=== PATIENT | female | born 1950 | race Caucasian/White ===

== ENCOUNTER → 2017-10-06 | Outpatient (CLI) | payer MEDICARE, OTHER ==
[~2017-10-06] MED LIST: ACYC-113 PO; ASPI-515 PO; ASPI325T17 PO; AZEL205.2 NAS; BIMA2.5D EACHEYE; ESTR42.53 EXT; LEVO50TA5 PO; LISI-167 PO; LORA0.5T PO; METF10002 PO; METO25TA35 PO; Maalox/Hyoscyamine/Lidocaine PO; OMEP-110 PO; POLY17PO5 PO; PREG75CA PO; ROSU20TA PO; TIZA4CAP PO
== END | disposition home or self-care (01) ==
LOC: RAD 14:15
PROVIDERS: ATTEND Family Medicine
DX: M43.16 Spondylolisthesis, lumbar region (principal); M51.36 Other intervertebral disc degeneration, lumbar region; M48.061 Spinal stenosis, lumbar region without neurogenic claudication; M25.78 Osteophyte, vertebrae
CPT/HCPCS: 72110

== ENCOUNTER → 2018-05-01 | Outpatient (CLI) | payer MEDICARE, OTHER | END | disposition home or self-care (01) | LOC: CFH 10:04 | PROVIDERS: ATTEND Family Medicine | DX: Z12.31 Encounter for screening mammogram for malignant neoplasm of breast (principal) | CPT/HCPCS: 77063; 77067 ==

== ENCOUNTER 2019-01-27 11:36 | Outpatient (CLI) | payer MEDICARE, OTHER ==
[~2019-01-27 11:36] MED LIST changes: -ROSU20TA PO; +ROSU20TA2 PO
== END 2019-01-27 23:59 | disposition home or self-care (01) ==
LOC: CFH 11:36
PROVIDERS: ATTEND Family Medicine
DX: S20.01XD Contusion of right breast, subsequent encounter (principal); S20.02XD Contusion of left breast, subsequent encounter; R92.8 Other abnormal and inconclusive findings on diagnostic imaging of breast; X58.XXXD Exposure to other specified factors, subsequent encounter; Z87.891 Personal history of nicotine dependence
CPT/HCPCS: 76642; 77066; G0279

== ENCOUNTER → 2019-03-02 | Outpatient (CLI) | payer MEDICARE, OTHER | END | disposition home or self-care (01) | LOC: CFH 12:10 | PROVIDERS: ATTEND Internal Medicine Cardiovascular Disease | DX: I08.0 Rheumatic disorders of both mitral and aortic valves (principal); I10 Essential (primary) hypertension; E78.5 Hyperlipidemia, unspecified | CPT/HCPCS: 93306 ==

== ENCOUNTER 2020-03-03 13:13 | Emergency (ER) | payer MEDICARE, OTHER ==
[~2020-03-03] VITALS: Ht 152.4 cm; Wt 45.5 kg
--- NOTE | 2020-03-03 13:40 | NUR ---
EKG AT THE BEDSIDE
--- NOTE | 2020-03-03 13:52 | NUR ---
PT STATES THAT SHE HAS INTERMITTENTLY LOST HER VOICE OVER THE LAST WEEK OR SO. SHE IS CONNECTED TO A TIP MENDER, O2 SAT, AND BP MONITORING. WE ARE AWAITING An md to assess,.
--- NOTE | 2020-03-03 13:59 | NUR ---
KRISHNA-Manoj IS AT THE BEDSIDE FOR ASSESSMENT
--- NOTE | 2020-03-03 14:15 | NUR ---
CXR AT THE BEDSIDE
[2020-03-03] MEDS ORDERED: SODIUM CHLORIDE FLUSH 10ML SYR IVF ONE (14:30)
[2020-03-03 14:38] LABS: BASOPHILS # (AUTO) 0.02 x10^3/uL (0-0.1); BASOPHILS % (AUTO) 0 % (0-1); EOSINOPHILS # (AUTO) 0.12 x10^3/uL (0-0.4); EOSINOPHILS % (AUTO) 2 % (1-7); LYMPHOCYTES # (AUTO) 2.25 x10^3/uL (1-3.4); LYMPHOCYTES % (AUTO) 38 % (22-44); MD NO; MEAN CORPUSCULAR HEMOGLOBIN 33.9 pg (27.0-34.8); MEAN CORPUSCULAR VOLUME 99.9 fL (80-100); MEAN PLATELET VOLUME 8.2 fL (7.4-10.4); MONOCYTES # (AUTO) 0.41 x10^3/uL (0.2-0.8); MONOCYTES % (AUTO) 7 % (2-9); NEUTROPHILS # (AUTO) 3.08 x10^3/uL (1.8-6.8); NEUTROPHILS % (AUTO) 52 % (42-75); PLATELET COUNT 262 x10^3/uL (130-400); RED CELL DISTRIBUTION WIDTH 12.7 % (9.6-15.2)
[2020-03-03 14:40] LABS: ALANINE AMINOTRANSFERASE 25 U/L (12-78); ALBUMIN 3.6 g/dL (3.4-5.0); ANION GAP 8 mmol/L (5-15); CALCIUM 9.3 mg/dL (8.5-10.1); CHLORIDE 101 mmol/L (98-107); CREATININE 0.94 mg/dL (0.55-1.02)
[2020-03-03 14:45] LABS: ALKALINE PHOSPHATASE 70 U/L (45-117); BILIRUBIN,TOTAL 0.3 mg/dL (0.2-1.0); TOTAL PROTEIN 7.3 g/dL (6.4-8.2); TROPONIN I < 0.015 ng/mL (0.000-0.045)
--- NOTE | 2020-03-03 15:07 | NUR ---
LEENA (RN) IS ASSUMING CARE OF THIS PT AT THIS TIME. SBAR REPORT WAS EXCHANGED AT THE BEDSIDE
[2020-03-03 15:10] VITALS: BP 179/92
--- NOTE | 2020-03-03 15:12 | NUR ---
RECEIVED BEDSIDE REPORT FROM LANDRY BHAKTA.
--- NOTE | 2020-03-03 15:28 | NUR ---
Patient/Caregiver given discharge instructions and they have confirmed that they understand the instructions. Patient ambulatory with steady gait. PT LEFT WITH ALL PERSONAL BELONGINGS.
== END 2020-03-03 15:29 | disposition home or self-care (01) ==
LOC: ED 14:13
DX: R42 Dizziness and giddiness (principal); R11.0 Nausea; R06.02 Shortness of breath; R00.1 Bradycardia, unspecified; I10 Essential (primary) hypertension; E11.9 Type 2 diabetes mellitus without complications; K21.9 Gastro-esophageal reflux disease without esophagitis
CPT/HCPCS: 36415; 71045; 80053; 83880; 84484; 85025; 93005; 99285

== ENCOUNTER 2020-04-19 09:09 | Outpatient (CLI) | payer MEDICARE, OTHER | END 2020-04-19 23:59 | disposition home or self-care (01) | LOC: CFH 09:09 | PROVIDERS: ATTEND Family Medicine | DX: Z02.9 Encounter for administrative examinations, unspecified (principal) ==

== ENCOUNTER 2020-05-01 07:44 | Emergency (ER) | payer MEDICARE, OTHER ==
[~2020-05-01] VITALS: Ht 152.4 cm; Wt 45.9 kg
[2020-05-01] MEDS ORDERED: LIDOCAINE 1%-EPI 1:100K, 20ML ONE (08:05)
[2020-05-01] MEDS ORDERED: PHENYLEPHRINE NASAL 1%, 15ML SPRAY ONE ×2 (08:06→10:14)
[2020-05-01 08:22] LABS: BASOPHILS # (AUTO) 0.02 x10^3/uL (0-0.1); BASOPHILS % (AUTO) 1 % (0-1); EOSINOPHILS # (AUTO) 0.09 x10^3/uL (0-0.4); EOSINOPHILS % (AUTO) 3 % (1-7); LYMPHOCYTES # (AUTO) 1.35 x10^3/uL (1-3.4); LYMPHOCYTES % (AUTO) 43 % (22-44); MD NO; MEAN CORPUSCULAR HEMOGLOBIN 33.9 pg (27.0-34.8); MEAN CORPUSCULAR HGB CONC 33.3 g/dL (32.4-35.8); MEAN PLATELET VOLUME 8.1 fL (7.4-10.4); MONOCYTES # (AUTO) 0.26 x10^3/uL (0.2-0.8); MONOCYTES % (AUTO) 8 % (2-9); NEUTROPHILS # (AUTO) 1.42 x10^3/uL (1.8-6.8); NEUTROPHILS % (AUTO) 45 % (42-75); PLATELET COUNT 250 x10^3/uL (130-400); RED BLOOD COUNT 3.82 x10^6/uL (3.82-5.3); RED CELL DISTRIBUTION WIDTH 12.3 % (9.6-15.2)
[2020-05-01] MEDS ORDERED: LIDOCAINE 1%-EPI 1:100K, 20ML SQ ONE (08:30)
[2020-05-01] MEDS ORDERED: PHENYLEPHRINE NASAL 1%, 30ML DROPS NAS ONE (08:30)
[2020-05-01 08:32] LABS: ALBUMIN 3.5 g/dL (3.4-5.0); ANION GAP 3 mmol/L (5-15); CALCIUM 8.6 mg/dL (8.5-10.1); CHLORIDE 107 mmol/L (98-107); CREATININE 1.07 mg/dL (0.55-1.02); INTERNATIONAL NORMALIZED RATIO 0.88 (0.93-1.1); PROTHROMBIN TIME 9.3 Seconds (9.6-11.5)
[2020-05-01] MEDS ORDERED: SILVER NITRATE STICK TP ONE ×2 (08:34→09:00)
[2020-05-01 09:25] VITALS: BP 157/83
[2020-05-01] MEDS ORDERED: TRANEXAMIC ACID 100 MG/ML, 10ML ONE ×2 (10:14→10:20)
[2020-05-01] MEDS ORDERED: TRANEXAMIC ACID 100 MG/ML, 10ML TP ONE (10:30)
== END 2020-05-01 11:18 | disposition home or self-care (01) ==
LOC: ED 09:45
DX: R04.0 Epistaxis (principal); R51 Headache; K21.9 Gastro-esophageal reflux disease without esophagitis; E11.9 Type 2 diabetes mellitus without complications; E78.5 Hyperlipidemia, unspecified; I10 Essential (primary) hypertension; E03.9 Hypothyroidism, unspecified; Z88.2 Allergy status to sulfonamides; Z88.1 Allergy status to other antibiotic agents; Z88.8 Allergy status to other drugs, medicaments and biological substances
CPT/HCPCS: 30901; 36415; 80048; 82040; 85025; 85610; 85730; 99284; J3490

== ENCOUNTER → 2020-05-23 | Outpatient (CLI) | payer MEDICARE, OTHER | END | disposition home or self-care (01) | LOC: CFH 11:59 | PROVIDERS: ATTEND Family Medicine | DX: R92.1 Mammographic calcification found on diagnostic imaging of breast (principal); N63.10 Unspecified lump in the right breast, unspecified quadrant; N63.20 Unspecified lump in the left breast, unspecified quadrant | CPT/HCPCS: 76642; 77066 ==

== ENCOUNTER → 2020-07-19 | Outpatient (CLI) | payer MEDICARE, OTHER ==
[~2020-07-19] MED LIST changes: +LIDOCAINE 1%, 20ML ONE; +LIDOCAINE 1%-EPI 1:100K, 20ML ONE; +SODIUM BICARBONATE 4.2%, 5ML ONE
== END | disposition home or self-care (01) ==
LOC: CFH 10:09
PROVIDERS: ATTEND Family Medicine
DX: R92.0 Mammographic microcalcification found on diagnostic imaging of breast (principal); R55 Syncope and collapse
CPT/HCPCS: 19081; J3490

== ENCOUNTER 2020-08-23 07:50 | Outpatient (CLI) | payer MEDICARE, OTHER ==
[~2020-08-23 07:50] MED LIST changes: -LIDOCAINE 1%, 20ML ONE; -LIDOCAINE 1%-EPI 1:100K, 20ML ONE; -SODIUM BICARBONATE 4.2%, 5ML ONE
[2020-08-23] MEDS ORDERED: SODIUM BICARBONATE 4.0%, 5ML ONE (12:38)
[2020-08-23] MEDS ORDERED: LIDOCAINE 1%, 20ML ONE (12:38)
== END 2020-08-23 23:59 | disposition home or self-care (01) ==
LOC: CFH 07:50
PROVIDERS: ATTEND Surgery
DX: R92.0 Mammographic microcalcification found on diagnostic imaging of breast (principal); D05.11 Intraductal carcinoma in situ of right breast
CPT/HCPCS: 19081; 88305; 77065

== ENCOUNTER → 2021-02-19 | Outpatient (CLI) | payer MEDICARE, OTHER ==
[~2021-02-19] MED LIST changes: -ACYC-113 PO; +ACYC200C13 PO; -ASPI-515 PO; +ASPI-963 PO
== END | disposition home or self-care (01) ==
LOC: CFH 12:44
PROVIDERS: ATTEND Surgery
DX: Z12.31 Encounter for screening mammogram for malignant neoplasm of breast (principal)
CPT/HCPCS: 77063; 77067

== ENCOUNTER 2021-03-02 14:07 | Outpatient (CLI) | payer MEDICARE, OTHER ==
[2021-07-26] MEDS ORDERED: LEVO50TA PO (16:47)
[2021-07-26] MEDS ORDERED: DONE5TAB52 PO (16:47)
[2021-07-26] MEDS ORDERED: LOSA25TA25 PO (16:47)
[2021-07-26] MEDS ORDERED: RISP1TAB90 PO (16:47)
[2021-07-26] MEDS ORDERED: ANAS1TAB49 PO (16:47)
[2021-07-26] MEDS ORDERED: MELA3TAB31 PO (16:47)
[2021-07-26] MEDS ORDERED: FAMO20TA7 PO (16:47)
[2021-07-26] MEDS ORDERED: CITA20TA9 PO (16:47)
[2021-07-26] MEDS ORDERED: EZET10TA48 PO (16:47)
== END 2021-03-02 23:59 | disposition home or self-care (01) ==
LOC: CFH 14:07
PROVIDERS: ATTEND Surgery
DX: R92.1 Mammographic calcification found on diagnostic imaging of breast (principal)
CPT/HCPCS: 77065

== ENCOUNTER 2021-03-20 11:30 | Emergency (ER) | payer MEDICARE, OTHER ==
[~2021-03-20] VITALS: Ht 142.2 cm; Wt 46.4 kg
--- NOTE | 2021-03-20 11:57 | NUR ---
PT HERE FOR C/O DIZZINESS AFTER TAKING DICYCLOMINE FOR IBS. PT PLACED ON ALL MONITORS, FALL PRECAUTIONS IMPLEMENTED, CALL LIGHT PLACED WITHIN REACH.
--- NOTE | 2021-03-20 12:32 | NUR ---
LAB AT BEDSIDE. PT IN NAD, VSS.
[2021-03-20] MEDS ORDERED: CLON-364 PO (12:39)
[2021-03-20] MEDS ORDERED: FAMO40TA4 PO (12:39)
[2021-03-20] MEDS ORDERED: LOSA25TA12 PO (12:39)
[2021-03-20] MEDS ORDERED: METO-264 PO (12:39)
[2021-03-20] MEDS ORDERED: ANAS1TAB49 PO (12:39)
[2021-03-20] MEDS ORDERED: CITA10TA4 PO (12:39)
[2021-03-20] MEDS ORDERED: DONE5TAB7 PO (12:39)
[2021-03-20] MEDS ORDERED: EZET10TA48 PO (12:39)
[2021-03-20] MEDS ORDERED: DICY10CA3 PO (12:39)
[2021-03-20] MEDS ORDERED: PREG100C49 PO (12:39)
[2021-03-20] MEDS ORDERED: METF-754 PO (12:39)
[2021-03-20 12:46] LABS: BASOPHILS % (AUTO) 1 % (0-1); EOSINOPHILS % (AUTO) 1 % (1-7); LYMPHOCYTES % (AUTO) 34 % (22-44); MEAN CORPUSCULAR HEMOGLOBIN 34.4 pg (27.0-34.8); MEAN CORPUSCULAR HGB CONC 34.5 g/dL (32.4-35.8); MEAN PLATELET VOLUME 7.5 fL (7.4-10.4); MONOCYTES % (AUTO) 8 % (2-9); NEUTROPHILS % (AUTO) 56 % (42-75); PLATELET COUNT 251 x10^3/uL (130-400); RED BLOOD COUNT 3.49 x10^6/uL (3.82-5.3)
--- NOTE | 2021-03-20 12:49 | NUR ---
PT AMBULATED TO RESTROOM ON STEADY GAIT, DENIES DIZZINESS.
[2021-03-20 12:51] LABS: MD NO
[2021-03-20 12:59] LABS: ALBUMIN 3.5 g/dL (3.4-5.0); ANION GAP 3 mmol/L (5-15); CALCIUM 8.9 mg/dL (8.5-10.1); CHLORIDE 103 mmol/L (98-107)
[2021-03-20 13:04] LABS: CREATININE 0.86 mg/dL (0.55-1.02); TROPONIN I < 0.015 ng/mL (0.000-0.045)
[2021-03-20 14:08] VITALS: BP 156/78
--- NOTE | 2021-03-20 14:09 | NUR ---
PT RESTING IN NAD, VITALS REMAIN STABLE. DENIES DIZZINESS.
== END 2021-03-20 14:27 ==
LOC: ED 14:03
DX: R42 Dizziness and giddiness (principal); R00.1 Bradycardia, unspecified; I10 Essential (primary) hypertension; E11.9 Type 2 diabetes mellitus without complications; E03.9 Hypothyroidism, unspecified; K21.9 Gastro-esophageal reflux disease without esophagitis; E78.5 Hyperlipidemia, unspecified
CPT/HCPCS: 36415; 80048; 82040; 83605; 84484; 85025; 93005; 99284

== ENCOUNTER 2021-04-18 11:35 | Observation (INO) | payer MEDICARE, OTHER ==
[~2021-04-18] VITALS: Ht 152.4 cm; Wt 45.6 kg
[~2021-04-18 11:35] MED LIST changes: +ANAS1TAB49 PO; +CITA10TA4 PO; +CLON-364 PO; +DICY10CA3 PO; +DONE5TAB7 PO; +EZET10TA48 PO; +FAMO40TA4 PO; +LOSA25TA12 PO; +METF-754 PO; +METO-264 PO; +PREG100C49 PO
--- NOTE | 2021-04-18 11:54 | NUR ---
PT AND FAMILY RPT FREQUENT CONFUSION OVER PAST WEEK. EXPLAINED THAT PT HAD UNPACKED HER SUIT CASE AND PUT ALL OF HER THINGS AWAY BUT THEN CAME DOWN THE STAIRS TELLING HER SON THAT SHE COULDN'T FIND HER MEDICATIONS. WHEN SON WENT UPSTAIRS TO HELP HER LOOK HE FOUND HER MEDICATIONS ON THE SHELF WHERE SHE HAD JUST UNPACKED THEM. DR RUIZ AT BEDSIDE. SON RECOUNTS OTHER FORGETFUL EPISODES OVER PREVIOUS SEVERAL MONTHS. HAS ATTEMPTED TO HAVE PT SEEN BY NEUROLOIST BUT APPT ARE SEVERAL MONTHS AWAY. ALL MONITORS PLACED AND NO NEURO DEFICITS NOTED AT THIS TIME. PT REPORTS THAT SHE REMEMBERS ALL OF THE EPISODES OF CONFUSION. VSS, CALL LIGHT W/I REACH
--- NOTE | 2021-04-18 12:25 | NUR ---
PT OOB AND AMBULATED TO BATHROOM, WAS UNABLE TO VOID. RTD TO ROOM W/O INCIDENT PT TO CT WITH TECH TRANSPORT
[2021-04-18] MEDS ORDERED: SODIUM CHLORIDE FLUSH 10ML SYR IVF ONE (12:30)
[2021-04-18 12:56] LABS: BASOPHILS % (AUTO) 1 % (0-1); EOSINOPHILS % (AUTO) 1 % (1-7); LYMPHOCYTES % (AUTO) 32 % (22-44); MEAN CORPUSCULAR HGB CONC 34.9 g/dL (32.4-35.8); MEAN PLATELET VOLUME 8.4 fL (7.4-10.4); MONOCYTES % (AUTO) 8 % (2-9); NEUTROPHILS % (AUTO) 59 % (42-75); PLATELET COUNT 213 x10^3/uL (130-400); RED BLOOD COUNT 3.96 x10^6/uL (3.82-5.3); RED CELL DISTRIBUTION WIDTH 12.5 % (9.6-15.2)
--- NOTE | 2021-04-18 12:56 | NUR ---
PIV EST AND LABS DRAWN. [facility] CATH PROCEDURE EXPLAINED TO PT.
[2021-04-18 13:08] LABS: ALANINE AMINOTRANSFERASE 31 U/L (12-78); ALBUMIN 3.8 g/dL (3.4-5.0); ANION GAP 9 mmol/L (5-15); CALCIUM 9.5 mg/dL (8.5-10.1); CHLORIDE 99 mmol/L (98-107); CREATININE 0.94 mg/dL (0.55-1.02)
--- NOTE | 2021-04-18 13:10 | NUR ---
dr abel spoke with dr jimenez with [facility]
[2021-04-18 13:28] LABS: ALKALINE PHOSPHATASE 72 U/L (45-117); BILIRUBIN,TOTAL 0.5 mg/dL (0.2-1.0); TOTAL PROTEIN 7.4 g/dL (6.4-8.2)
[2021-04-18] MEDS ORDERED: SODIUM CHLORIDE FLUSH 10ML SYR IVF PRN (13:30)
[2021-04-18 13:33] LABS: MICROSCOPIC INDICATED
[2021-04-18 13:35] LABS: SALICYLATE LEVEL < 1.7 mg/dL (2.8-20.0)
[2021-04-18 15:27] VITALS: BP 143/74
[2021-04-18] MEDS ORDERED: MELATONIN 5 MG TABLET PO PRN (16:00)
[2021-04-18] MEDS ORDERED: ACETAMINOPHEN 325 MG TABLET PO PRN (16:00)
[2021-04-18] MEDS ORDERED: DICYCLOMINE 10 MG CAPSULE PO PRN (16:30)
[2021-04-18] MEDS ORDERED: AZELASTINE HCL NAS SCH (16:30)
[2021-04-18 19:08] VITALS: BP 131/80
[2021-04-18] MEDS: FAMOTIDINE 40 MG TABLET PO SCH (20:27)
[2021-04-18] MEDS: PREGABALIN 100 MG CAPSULE PO SCH (20:28)
[2021-04-18] MEDS ORDERED: PREGABALIN 75 MG CAPSULE PO SCH (21:00)
[2021-04-18] MEDS ORDERED: Bimatoprost (Lumigan) 1 DROP EACHEYE SCH (21:00)
[2021-04-18] MEDS ORDERED: TIZANIDINE 4MG TABLET PO SCH (21:00)
[2021-04-18] MEDS ORDERED: ATORVASTATIN 80 MG TABLET PO SCH (21:00)
[2021-04-18] MEDS ORDERED: LATANOPROST OPHTH 0.005%, 2.5ML EACHEYE SCH (21:00)
[2021-04-19 00:20] VITALS: BP 107/62
[2021-04-19] MEDS ORDERED: LEVOTHYROXINE 50 MCG TABLET PO SCH (06:00)
[2021-04-19 06:26] VITALS: BP 130/78
[2021-04-19] MEDS: PREGABALIN 100 MG CAPSULE PO SCH (08:56)
[2021-04-19] MEDS: FAMOTIDINE 40 MG TABLET PO SCH (08:56)
[2021-04-19] MEDS ORDERED: MULTIVITAMIN 1 TABLET PO SCH (09:00)
[2021-04-19] MEDS ORDERED: METOPROLOL SUCCINATE 50 MG TAB.ER.24H PO SCH (09:00)
[2021-04-19] MEDS ORDERED: LOSARTAN 25MG TABLET PO SCH (09:00)
[2021-04-19] MEDS ORDERED: DONEPEZIL 5 MG TABLET PO SCH (09:00)
[2021-04-19] MEDS ORDERED: CITALOPRAM 10 MG TABLET PO SCH (09:00)
[2021-04-19] MEDS ORDERED: ANASTROZOLE 1 MG TABLET PO SCH (09:00)
[2021-04-19] MEDS ORDERED: ASPIRIN 81 MG TABLET EC PO SCH (09:00)
[2021-04-19] MEDS ORDERED: EZETIMIBE 10 MG TABLET PO SCH (09:00)
[2021-04-19] MEDS ORDERED: metFORMIN XR 500 MG TAB.ER.24H PO SCH (09:00)
[2021-04-19] MEDS ORDERED: GADOTERATE 5 MMOL/10ML SYR ONE (11:18)
[2021-04-19] MEDS ORDERED: VITA1TAB19 PO (13:15)
[2021-04-19 13:52] VITALS: BP 177/85
[2021-04-20] MEDS ORDERED: FAMOTIDINE 20 MG TABLET PO SCH (09:00)
== END 2021-04-19 18:00 | disposition home or self-care (01) ==
LOC: SUATTDRO 13:23 → ED 14:00 → EDIP 14:15 → INTOOBSV 14:15 → 3N 15:24
PROVIDERS: ADMIT Internal Medicine; ATTEND Internal Medicine
DX: F03.90 Unspecified dementia, unspecified severity, without behavioral disturbance, psychotic disturbance, mood disturbance, and anxiety (principal); G93.40 Encephalopathy, unspecified; I10 Essential (primary) hypertension; E11.9 Type 2 diabetes mellitus without complications; C50.919 Malignant neoplasm of unspecified site of unspecified female breast; H40.9 Unspecified glaucoma; E03.9 Hypothyroidism, unspecified; E78.5 Hyperlipidemia, unspecified; K21.9 Gastro-esophageal reflux disease without esophagitis; G89.29 Other chronic pain; G31.9 Degenerative disease of nervous system, unspecified; F41.8 Other specified anxiety disorders; Z87.891 Personal history of nicotine dependence; Z91.040 Latex allergy status; Z79.899 Other long term (current) drug therapy; Z79.84 Long term (current) use of oral hypoglycemic drugs; Z79.2 Long term (current) use of antibiotics; Z66 Do not resuscitate
CPT/HCPCS: 36415; 70450; 70553; 80053; 80299; 80320; 81001; 82140; 82607; 84443; 85025; 86592; 87086; 93005; 95816; 99285; A9575; G0378; 80329; G0480

== ENCOUNTER 2021-05-22 06:58 | Outpatient (CLI) | payer MEDICARE, OTHER ==
[~2021-05-22 06:58] MED LIST changes: +VITA1TAB19 PO
[2021-05-22] MEDS ORDERED: LIDOCAINE 1%, 20ML ONE (10:12)
[2021-05-22] MEDS ORDERED: SODIUM BICARBONATE 4.0%, 5ML ONE (10:12)
== END 2021-05-22 23:59 | disposition home or self-care (01) ==
LOC: CFH 06:58
PROVIDERS: ATTEND Surgery
DX: R92.1 Mammographic calcification found on diagnostic imaging of breast (principal)
CPT/HCPCS: 19081

== ENCOUNTER 2021-06-12 19:16 | Inpatient (IN) | payer MEDICARE, OTHER ==
[~2021-06-12] VITALS: Ht 152.4 cm; Wt 43.5 kg
[2021-06-12] MEDS ORDERED: LIDOCAINE 1%, 10ML INFIL ONE (19:30)
[2021-06-12] MEDS ORDERED: SODIUM CHLORIDE 0.9% 1,000ML IVBOLUS ONE (19:30)
[2021-06-12] MEDS ORDERED: SODIUM CHLORIDE FLUSH 10ML SYR IVF ONE (19:30)
--- NOTE | 2021-06-12 19:32 | NUR ---
PT BIBA. PER EMS PT HAD A GLF TODAY AND CHIPPED HER TOOTH. PT ALSO HAS SMALL LACERATION ON R UPPER LIP, BLEEDING CONTROLLED. PER EMS -LOC OR ANTICOAGS. PT HAS HX OF DEMENTIA. PER PT SHE JUST DIDN'T FEEL RIGHT AND FELL. PT RESTING IN GURNEY, MONITORING IN PLACE, SON AT BEDSIDE, UVALDO AT THIS TIME, WCTM.
--- NOTE | 2021-06-12 19:34 | NUR ---
PER EMS PT RECEIVED 1L NS EN ROUTE.
--- NOTE | 2021-06-12 19:41 | NUR ---
Gamaliel Felix (son) I spoke w/ pts son who approached RN at desk. Stated that he cannot take care of the pt tonight because he has been taking care of her for the last two nights, she has dementia, and he has not slept in two days. Son stated that if she is to be discharged tonight, he will not be able to come and take care of her or bring her home because he takes antidepressant medications and it would be a risk to himself "and her" if he drives to come and pick her up. Primary RN Jessica, made aware at this time. Pts son, Gamaliel has exited the ER.
[2021-06-12 19:48] LABS: BASOPHILS % (AUTO) 0 % (0-1); EOSINOPHILS % (AUTO) 0 % (1-7); LYMPHOCYTES % (AUTO) 12 % (22-44); MEAN CORPUSCULAR HGB CONC 34.8 g/dL (32.4-35.8); MONOCYTES % (AUTO) 7 % (2-9); NEUTROPHILS % (AUTO) 80 % (42-75); PLATELET COUNT 185 x10^3/uL (130-400); RED BLOOD COUNT 3.44 x10^6/uL (3.82-5.3); RED CELL DISTRIBUTION WIDTH 12.1 % (9.6-15.2)
[2021-06-12 20:00] LABS: ANION GAP 9 mmol/L (5-15); CALCIUM 8.1 mg/dL (8.5-10.1); CHLORIDE 99 mmol/L (98-107)
[2021-06-12 20:07] LABS: ALANINE AMINOTRANSFERASE 15 U/L (12-78); ALKALINE PHOSPHATASE 63 U/L (45-117); BILIRUBIN,TOTAL 0.6 mg/dL (0.2-1.0); CREATININE 1.56 mg/dL (0.55-1.02); TROPONIN I < 0.015 ng/mL (0.000-0.045)
--- NOTE | 2021-06-12 20:32 | NUR ---
PT AMBULATED STEADILY TO BATHROOM BUT IS UNABLE TO PROVIDE URINE SAMPLE AT THIS TIME. WCTM.
--- NOTE | 2021-06-12 20:53 | NUR ---
RUTH ANN, SON, CALLED TO CHECK ON PT. PT STATES IT IS OKAY TO TELL HIM INFO AND UPDATE HIM ON POC. POC RELAYED TO SON.
--- NOTE | 2021-06-12 21:03 | NUR ---
REPORT TO LANDRY BARAHONA.
--- NOTE | 2021-06-12 21:15 | NUR ---
RECIEVED REPORT FROM STEVE ALATORRE. PATIENT RESTING ON [place], AMANDA AT THIS TIME, NOTIFIED PATIENT THAT A UA IS NEEDED.
--- NOTE | 2021-06-12 22:19 | NUR ---
WENT INTO ROOM TO CATH PATIENT FOR UA, PATIENT DID NOT WAKE TO VERBAL COMMANDS, ATTEMPTED TO ROUSE PATIENT BY SHAKING HER SHOULD WITH NO RESULTS, HAD TO STERNAL RUB THE PATIENT TO GET HER TO WAKE UP. ONCE AWAKE PATIENT IS AOX4, NAD AND VSS.
[2021-06-12 22:35] LABS: MICROSCOPIC INDICATED
--- NOTE | 2021-06-12 23:33 | NUR ---
PATIENT SLEEPING ON AMANDA MORAN AT THIS TIME. VSS.
--- NOTE | 2021-06-13 01:00 | NUR ---
Preceptor RN: Patient resting in [facility] with no complaints at this time. Respirations even and unlabored.
--- NOTE | 2021-06-13 02:03 | NUR ---
REQUESTED HOSPITAL BED FOR PT.
--- NOTE | 2021-06-13 03:05 | NUR ---
patient sleeping on AMANDA gómez at this time, VSS.
--- NOTE | 2021-06-13 03:40 | NUR ---
PATIENT REQUESTED TO USE BATHROOM, AMBULATORY WITH STEADY GATE TO BATHROOM, RETURNED TO ROOM, CONNECTED BACK TO MONITOR. NAD AT THIS TIME.
--- NOTE | 2021-06-13 04:46 | NUR ---
PATIENT SLEEPING ON AMANDA MORAN AT THIS TIME, VSS
--- NOTE | 2021-06-13 05:47 | NUR ---
PATIENT MOVED TO ROOM 05 FROM VIA W/C. PLACED IN HOSPITAL BED, CONNECTED TO MONITOR. BELONGINGS PLACED IN ROOM WITH PATIENT, CALL LIGHT WITHIN REACH.
[2021-06-13] MEDS ORDERED: hydrALAzine 20 MG/ML, 1ML IVPush PRN (07:00)
[2021-06-13] MEDS ORDERED: morphine SULFATE 10 MG/ML, 1ML IVPush PRN (07:00)
[2021-06-13] MEDS ORDERED: ACETAMINOPHEN 325 MG TABLET PO PRN (07:00)
[2021-06-13] MEDS ORDERED: ONDANSETRON 2MG/ML, 2ML IVPush PRN (07:00)
[2021-06-13 07:31] LABS: BASOPHILS % (AUTO) 1 % (0-1); EOSINOPHILS % (AUTO) 2 % (1-7); LYMPHOCYTES % (AUTO) 44 % (22-44); MEAN CORPUSCULAR HGB CONC 34.7 g/dL (32.4-35.8); MEAN PLATELET VOLUME 8.4 fL (7.4-10.4); MONOCYTES % (AUTO) 11 % (2-9); NEUTROPHILS % (AUTO) 43 % (42-75); PLATELET COUNT 192 x10^3/uL (130-400); RED BLOOD COUNT 3.41 x10^6/uL (3.82-5.3); RED CELL DISTRIBUTION WIDTH 12.1 % (9.6-15.2)
--- NOTE | 2021-06-13 07:44 | NUR ---
cardiac rhythm strip printed and placed on chart.
[2021-06-13] MEDS ORDERED: DICYCLOMINE 10 MG CAPSULE PO PRN (08:30)
[2021-06-13] MEDS ORDERED: HEPARIN 5,000 UNITS/ML, 1ML ONE (08:34)
[2021-06-13] MEDS: HEPARIN 5,000 UNITS/ML, 1ML SQ SCH ×2 (08:38→20:46)
--- NOTE | 2021-06-13 09:34 | NUR ---
MEAL TRAY PROVIDED.
[2021-06-13] MEDS ORDERED: FAMOTIDINE 20 MG TABLET ONE (11:06)
[2021-06-13] MEDS ORDERED: ASPIRIN 81 MG TABLET EC ONE (11:06)
[2021-06-13] MEDS: ANASTROZOLE 1 MG TABLET PO SCH (11:41)
[2021-06-13] MEDS: metFORMIN XR 500 MG TAB.ER.24H PO SCH (11:41)
[2021-06-13] MEDS: ASPIRIN 81 MG TABLET EC PO SCH (11:41)
[2021-06-13] MEDS: DONEPEZIL 5 MG TABLET PO SCH (11:42)
[2021-06-13] MEDS: FAMOTIDINE 40 MG TABLET PO SCH ×2 (11:42→20:46)
[2021-06-13] MEDS: CITALOPRAM 10 MG TABLET PO SCH (11:42)
[2021-06-13] MEDS: LOSARTAN 25MG TABLET PO SCH (11:42)
[2021-06-13] MEDS: LEVOTHYROXINE 50 MCG TABLET PO SCH (11:42)
[2021-06-13] MEDS: EZETIMIBE 10 MG TABLET PO SCH (11:42)
[2021-06-13] MEDS: METOPROLOL SUCCINATE 50 MG TAB.ER.24H PO SCH (11:43)
[2021-06-13] MEDS: PREGABALIN 100 MG CAPSULE PO SCH ×2 (14:30→20:46)
[2021-06-13 19:09] VITALS: BP 140/79
[2021-06-14] VITALS (7 sets, daily range): BP systolic 134–162; BP diastolic 74–91
[2021-06-14 06:22] LABS: ANION GAP 8 mmol/L (5-15); CALCIUM 8.2 mg/dL (8.5-10.1); CHLORIDE 93 mmol/L (98-107)
[2021-06-14 06:25] LABS: ALANINE AMINOTRANSFERASE 19 U/L (12-78); ALKALINE PHOSPHATASE 77 U/L (45-117); BILIRUBIN,TOTAL 0.8 mg/dL (0.2-1.0); CREATININE 0.85 mg/dL (0.55-1.02); TOTAL PROTEIN 6.3 g/dL (6.4-8.2)
[2021-06-14] MEDS: ASPIRIN 81 MG TABLET EC PO SCH (08:17)
[2021-06-14] MEDS: FAMOTIDINE 40 MG TABLET PO SCH ×2 (08:17→21:45)
[2021-06-14] MEDS: HEPARIN 5,000 UNITS/ML, 1ML SQ SCH ×2 (08:17→18:06)
[2021-06-14] MEDS: PREGABALIN 100 MG CAPSULE PO SCH ×2 (08:17→21:45)
[2021-06-14] MEDS: LEVOTHYROXINE 50 MCG TABLET PO SCH (08:17)
[2021-06-14] MEDS: EZETIMIBE 10 MG TABLET PO SCH (08:18)
[2021-06-14] MEDS: LOSARTAN 25MG TABLET PO SCH (08:18)
[2021-06-14] MEDS: metFORMIN XR 500 MG TAB.ER.24H PO SCH (08:18)
[2021-06-14] MEDS: CITALOPRAM 10 MG TABLET PO SCH (08:18)
[2021-06-14] MEDS: DONEPEZIL 5 MG TABLET PO SCH (08:18)
[2021-06-14] MEDS: METOPROLOL SUCCINATE 50 MG TAB.ER.24H PO SCH (08:46)
[2021-06-14] MEDS: ANASTROZOLE 1 MG TABLET PO SCH (09:00)
[2021-06-14] MEDS ORDERED: HALOPERIDOL 5 MG/ML IV ONE (13:30)
[2021-06-14] MEDS: SODIUM CHLORIDE 0.9% 1,000 ML IV SCH (18:06)
[2021-06-15 00:32] VITALS: BP 117/69
[2021-06-15] MEDS: SODIUM CHLORIDE 0.9% 1,000 ML IV SCH ×2 (04:58→12:42)
[2021-06-15 05:13] LABS: CREATININE 0.55 mg/dL (0.55-1.02)
[2021-06-15 05:35] LABS: ANION GAP 8 mmol/L (5-15); CHLORIDE 99 mmol/L (98-107)
[2021-06-15] MEDS: ASPIRIN 81 MG TABLET EC PO SCH (08:53)
[2021-06-15] MEDS: metFORMIN XR 500 MG TAB.ER.24H PO SCH (08:53)
[2021-06-15] MEDS: HEPARIN 5,000 UNITS/ML, 1ML SQ SCH ×2 (08:53→21:35)
[2021-06-15] MEDS: LEVOTHYROXINE 50 MCG TABLET PO SCH (08:54)
[2021-06-15] MEDS: CITALOPRAM 10 MG TABLET PO SCH (08:54)
[2021-06-15] MEDS: METOPROLOL SUCCINATE 50 MG TAB.ER.24H PO SCH (08:54)
[2021-06-15] MEDS: LOSARTAN 25MG TABLET PO SCH (08:54)
[2021-06-15] MEDS: PREGABALIN 100 MG CAPSULE PO SCH ×2 (08:54→21:32)
[2021-06-15] MEDS: EZETIMIBE 10 MG TABLET PO SCH (08:54)
[2021-06-15] MEDS: DONEPEZIL 5 MG TABLET PO SCH (08:54)
[2021-06-15] MEDS: ANASTROZOLE 1 MG TABLET PO SCH (08:55)
[2021-06-15 09:23] VITALS: BP 126/56
[2021-06-15 12:31] VITALS: BP 158/78
[2021-06-15 19:39] VITALS: BP 154/78
[2021-06-15] MEDS: FAMOTIDINE 40 MG TABLET PO SCH (21:32)
[2021-06-16 00:51] VITALS: BP 154/83
[2021-06-16 08:30] VITALS: BP 123/78
[2021-06-16] MEDS: EZETIMIBE 10 MG TABLET PO SCH (09:53)
[2021-06-16] MEDS: DONEPEZIL 5 MG TABLET PO SCH (09:53)
[2021-06-16] MEDS: metFORMIN XR 500 MG TAB.ER.24H PO SCH (09:53)
[2021-06-16] MEDS: ASPIRIN 81 MG TABLET EC PO SCH (09:53)
[2021-06-16] MEDS: ANASTROZOLE 1 MG TABLET PO SCH (09:53)
[2021-06-16] MEDS: LOSARTAN 25MG TABLET PO SCH (09:54)
[2021-06-16] MEDS: CITALOPRAM 10 MG TABLET PO SCH (09:54)
[2021-06-16] MEDS: METOPROLOL SUCCINATE 50 MG TAB.ER.24H PO SCH (09:54)
[2021-06-16] MEDS: HEPARIN 5,000 UNITS/ML, 1ML SQ SCH ×2 (09:54→20:03)
[2021-06-16] MEDS: LEVOTHYROXINE 50 MCG TABLET PO SCH (09:54)
[2021-06-16] MEDS: PREGABALIN 100 MG CAPSULE PO SCH ×2 (09:54→20:03)
[2021-06-16 15:57] VITALS: BP 152/71
[2021-06-16 19:02] VITALS: BP 128/79
[2021-06-16] MEDS: FAMOTIDINE 40 MG TABLET PO SCH (20:03)
[2021-06-17 01:25] VITALS: BP 143/81
[2021-06-17 07:58] VITALS: BP 148/76
[2021-06-17] MEDS: PREGABALIN 100 MG CAPSULE PO SCH ×2 (08:55→21:32)
[2021-06-17] MEDS: CITALOPRAM 10 MG TABLET PO SCH (08:55)
[2021-06-17] MEDS: ANASTROZOLE 1 MG TABLET PO SCH (08:55)
[2021-06-17] MEDS: EZETIMIBE 10 MG TABLET PO SCH (08:55)
[2021-06-17] MEDS: DONEPEZIL 5 MG TABLET PO SCH (08:55)
[2021-06-17] MEDS: LEVOTHYROXINE 50 MCG TABLET PO SCH (08:55)
[2021-06-17] MEDS: ASPIRIN 81 MG TABLET EC PO SCH (08:55)
[2021-06-17] MEDS: LOSARTAN 25MG TABLET PO SCH (08:56)
[2021-06-17] MEDS: metFORMIN XR 500 MG TAB.ER.24H PO SCH (08:56)
[2021-06-17] MEDS: HEPARIN 5,000 UNITS/ML, 1ML SQ SCH ×2 (08:56→21:32)
[2021-06-17] MEDS: METOPROLOL SUCCINATE 50 MG TAB.ER.24H PO SCH (08:56)
[2021-06-17 12:28] LABS: MICROSCOPIC INDICATED
[2021-06-17 13:15] VITALS: BP 152/85
[2021-06-17] MEDS ORDERED: CEFTRIAXONE 1,000 MG in DEXTROSE 5% 50 ML IVPB SCH (14:30)
[2021-06-17 20:15] VITALS: BP 145/80
[2021-06-17] MEDS: FAMOTIDINE 40 MG TABLET PO SCH (21:32)
[2021-06-18 01:41] VITALS: BP 138/78
[2021-06-18] MEDS: LEVOTHYROXINE 50 MCG TABLET PO SCH (06:04)
[2021-06-18 06:30] VITALS: BP 154/87
[2021-06-18 07:31] LABS: ANION GAP 7 mmol/L (5-15); CALCIUM 9.2 mg/dL (8.5-10.1); CHLORIDE 99 mmol/L (98-107)
[2021-06-18 07:33] LABS: CREATININE 0.68 mg/dL (0.55-1.02)
[2021-06-18] MEDS: HEPARIN 5,000 UNITS/ML, 1ML SQ SCH (08:14)
[2021-06-18] MEDS: EZETIMIBE 10 MG TABLET PO SCH (08:14)
[2021-06-18] MEDS: LOSARTAN 25MG TABLET PO SCH (08:15)
[2021-06-18] MEDS: PREGABALIN 100 MG CAPSULE PO SCH (08:15)
[2021-06-18] MEDS: DONEPEZIL 5 MG TABLET PO SCH (08:15)
[2021-06-18] MEDS: METOPROLOL SUCCINATE 50 MG TAB.ER.24H PO SCH (08:15)
[2021-06-18] MEDS: CITALOPRAM 10 MG TABLET PO SCH (08:15)
[2021-06-18] MEDS: ASPIRIN 81 MG TABLET EC PO SCH (08:15)
[2021-06-18] MEDS: metFORMIN XR 500 MG TAB.ER.24H PO SCH (08:15)
[2021-06-18] MEDS: ANASTROZOLE 1 MG TABLET PO SCH (08:19)
[2021-06-18] MEDS ORDERED: LEVO500T8 PO (11:16)
[2021-06-18] MEDS ORDERED: CEPH500T PO (11:20)
[2021-06-18] MEDS ORDERED: LEVOFLOXACIN 500 MG TABLET PO SCH (11:30)
[2021-06-18] MEDS ORDERED: CEFDINIR 300 MG CAPSULE PO SCH (11:30)
[2021-06-18 12:53] VITALS: BP 108/70
== END 2021-06-18 16:00 | DRG 682 ==
LOC: ED 20:08 → EDIP 06-13 00:15 → 4EST 06-13 16:52
PROVIDERS: ADMIT Family Medicine; ATTEND Hospitalist
PROC: 0T9B70Z Drainage of Bladder with Drainage Device, Via Natural or Artificial Opening (ICD-10-PCS; principal; 2021-06-12)
DX: N17.0 Acute kidney failure with tubular necrosis (principal); G93.41 Metabolic encephalopathy; N39.0 Urinary tract infection, site not specified; Z68.1 Body mass index [BMI] 19.9 or less, adult; E87.1 Hypo-osmolality and hyponatremia; E86.0 Dehydration; Z66 Do not resuscitate; R62.7 Adult failure to thrive; D05.10 Intraductal carcinoma in situ of unspecified breast; E03.9 Hypothyroidism, unspecified; E11.9 Type 2 diabetes mellitus without complications; K59.00 Constipation, unspecified; E78.5 Hyperlipidemia, unspecified; F03.90 Unspecified dementia, unspecified severity, without behavioral disturbance, psychotic disturbance, mood disturbance, and anxiety; K21.9 Gastro-esophageal reflux disease without esophagitis; F32.9 Major depressive disorder, single episode, unspecified; B96.4 Proteus (mirabilis) (morganii) as the cause of diseases classified elsewhere; W18.39XA Other fall on same level, initial encounter; G89.29 Other chronic pain; I10 Essential (primary) hypertension; G31.9 Degenerative disease of nervous system, unspecified; S01.511A Laceration without foreign body of lip, initial encounter; Z79.84 Long term (current) use of oral hypoglycemic drugs; Z79.899 Other long term (current) drug therapy; Y93.89 Activity, other specified; Y92.89 Other specified places as the place of occurrence of the external cause; Y99.8 Other external cause status; Z88.2 Allergy status to sulfonamides; Z88.8 Allergy status to other drugs, medicaments and biological substances; Z91.040 Latex allergy status; Z88.1 Allergy status to other antibiotic agents
CPT/HCPCS: 36415; 70450; 71045; 80048; 80053; 81001; 83735; 84100; 84443; 84484; 85025; 87077; 87086; 87186; 93005; 93306; 96360; G0378; J0696; J1644; J1630; J7030

== ENCOUNTER 2021-07-02 20:00 | Emergency (ER) | payer MEDICARE, OTHER ==
[~2021-07-02] VITALS: Ht 152.4 cm; Wt 42.1 kg
[~2021-07-02 20:00] MED LIST changes: +CEPH500T PO; +LEVO500T8 PO
[2021-07-02 21:29] LABS: BASOPHILS % (AUTO) 1 % (0-1); EOSINOPHILS % (AUTO) 1 % (1-7); LYMPHOCYTES % (AUTO) 28 % (22-44); MEAN CORPUSCULAR HEMOGLOBIN 34.6 pg (27.0-34.8); MEAN CORPUSCULAR HGB CONC 34.7 g/dL (32.4-35.8); MEAN PLATELET VOLUME 7.4 fL (7.4-10.4); MONOCYTES % (AUTO) 10 % (2-9); NEUTROPHILS % (AUTO) 61 % (42-75); PLATELET COUNT 310 x10^3/uL (130-400); RED BLOOD COUNT 3.52 x10^6/uL (3.82-5.3); RED CELL DISTRIBUTION WIDTH 12.7 % (9.6-15.2)
[2021-07-02 21:37] LABS: ALANINE AMINOTRANSFERASE 34 U/L (12-78); ALBUMIN 3.1 g/dL (3.4-5.0); ANION GAP 4 mmol/L (5-15); CALCIUM 8.8 mg/dL (8.5-10.1); CHLORIDE 98 mmol/L (98-107); CREATININE 0.76 mg/dL (0.55-1.02)
[2021-07-02 21:39] LABS: ALKALINE PHOSPHATASE 77 U/L (45-117); BILIRUBIN,TOTAL 0.5 mg/dL (0.2-1.0); TOTAL PROTEIN 6.7 g/dL (6.4-8.2)
--- NOTE | 2021-07-02 23:37 | NUR ---
Dr. Jj at bedside
--- NOTE | 2021-07-02 23:50 | NUR ---
Urine tubed to lab at this time
[2021-07-03] LABS: MICROSCOPIC AUTO
--- NOTE | 2021-07-03 00:10 | NUR ---
Dr. Jj at bedside for re check
[2021-07-03 01:11] VITALS: BP 131/75
== END 2021-07-03 01:20 | disposition home or self-care (01) ==
LOC: ED 23:50
DX: G30.1 Alzheimer's disease with late onset (principal); F02.81 Dementia in other diseases classified elsewhere, unspecified severity, with behavioral disturbance; N30.00 Acute cystitis without hematuria; R94.31 Abnormal electrocardiogram [ECG] [EKG]; Z87.891 Personal history of nicotine dependence; I10 Essential (primary) hypertension; E03.9 Hypothyroidism, unspecified; E78.5 Hyperlipidemia, unspecified; K21.9 Gastro-esophageal reflux disease without esophagitis; E11.9 Type 2 diabetes mellitus without complications
CPT/HCPCS: 36415; 70450; 80053; 81001; 85025; 87077; 87086; 87186; 93005; 99285

== ENCOUNTER 2021-07-04 09:23 | Observation (INO) | payer MEDICARE, OTHER ==
[~2021-07-04] VITALS: Ht 154.9 cm; Wt 50.0 kg
[2021-07-04 11:28] LABS: BASOPHILS % (AUTO) 1 % (0-1); EOSINOPHILS % (AUTO) 0 % (1-7); LYMPHOCYTES % (AUTO) 17 % (22-44); MEAN CORPUSCULAR HEMOGLOBIN 34.4 pg (27.0-34.8); MEAN CORPUSCULAR HGB CONC 34.5 g/dL (32.4-35.8); MEAN PLATELET VOLUME 7.3 fL (7.4-10.4); MONOCYTES % (AUTO) 8 % (2-9); NEUTROPHILS % (AUTO) 74 % (42-75); PLATELET COUNT 318 x10^3/uL (130-400); RED BLOOD COUNT 3.81 x10^6/uL (3.82-5.3); RED CELL DISTRIBUTION WIDTH 13.4 % (9.6-15.2)
[2021-07-04 11:37] LABS: ALBUMIN 3.4 g/dL (3.4-5.0); ANION GAP 6 mmol/L (5-15); CALCIUM 9.6 mg/dL (8.5-10.1); CHLORIDE 104 mmol/L (98-107)
[2021-07-04 11:40] LABS: ALANINE AMINOTRANSFERASE 34 U/L (12-78); ALKALINE PHOSPHATASE 81 U/L (45-117); BILIRUBIN,TOTAL 0.5 mg/dL (0.2-1.0); CREATININE 0.73 mg/dL (0.55-1.02); TOTAL PROTEIN 7.2 g/dL (6.4-8.2)
[2021-07-04 11:42] LABS: SALICYLATE LEVEL < 1.7 mg/dL (2.8-20.0)
[2021-07-04] MEDS: QUETIAPINE 25MG TABLET PO SCH (12:00)
[2021-07-04] MEDS: CITALOPRAM 10 MG TABLET PO SCH (12:00)
[2021-07-04] MEDS ORDERED: CITALOPRAM 20 MG TABLET ONE (16:06)
[2021-07-04] MEDS ORDERED: QUETIAPINE 25MG TABLET ONE (16:06)
[2021-07-05 08:50] LABS: ANION GAP 13 mmol/L (5-15); CALCIUM 9.8 mg/dL (8.5-10.1); CHLORIDE 100 mmol/L (98-107); CREATININE 0.92 mg/dL (0.55-1.02)
[2021-07-05] MEDS: QUETIAPINE 25MG TABLET PO SCH (09:26)
[2021-07-05] MEDS: CITALOPRAM 10 MG TABLET PO SCH (09:26)
[2021-07-05 09:29] LABS: AMPHETAMINE SCREEN, URINE Negative (Negative); BARBITURATE SCREEN, URINE Negative (Negative); BENZODIAZEPINE SCREEN, URINE Negative (Negative); CANNABINOID SCREEN, URINE Negative (Negative); COCAINE SCREEN, URINE Negative (Negative); METHADONE SCREEN, URINE Negative (Negative); OPIATE SCREEN, URINE Negative (Negative)
[2021-07-05 12:12] VITALS: BP 136/82
[2021-07-05 12:13] LABS: MICROSCOPIC NOT IND
[2021-07-05] MEDS ORDERED: CITA20TA9 PO (17:12)
[2021-07-05] MEDS ORDERED: RISP0.5T62 PO (17:12)
[2021-07-05] MEDS ORDERED: DONE5TAB52 PO (17:12)
[2021-07-26] MEDS ORDERED: RISP1TAB90 PO (16:47)
[2021-07-26] MEDS ORDERED: CITA20TA9 PO (16:47)
[2021-07-26] MEDS ORDERED: LEVO50TA PO (16:47)
[2021-07-26] MEDS ORDERED: DONE5TAB52 PO (16:47)
[2021-07-26] MEDS ORDERED: FAMO20TA7 PO (16:47)
[2021-07-26] MEDS ORDERED: EZET10TA48 PO (16:47)
[2021-07-26] MEDS ORDERED: LOSA25TA25 PO (16:47)
[2021-07-26] MEDS ORDERED: ANAS1TAB49 PO (16:47)
[2021-07-26] MEDS ORDERED: MELA3TAB31 PO (16:47)
== END 2021-07-05 17:49 | disposition home or self-care (01) ==
LOC: ED 09:29 → EDIP 17:25 → UNDOADMOB 17:25 → ED 07-05 17:49
PROVIDERS: ADMIT Emergency Medicine; ATTEND Emergency Medicine
DX: F29 Unspecified psychosis not due to a substance or known physiological condition (principal); Z20.822 Contact with and (suspected) exposure to COVID-19; F03.90 Unspecified dementia, unspecified severity, without behavioral disturbance, psychotic disturbance, mood disturbance, and anxiety; F20.9 Schizophrenia, unspecified; F22 Delusional disorders; I10 Essential (primary) hypertension; E11.9 Type 2 diabetes mellitus without complications; E03.9 Hypothyroidism, unspecified; E78.5 Hyperlipidemia, unspecified; Z79.82 Long term (current) use of aspirin; Z79.899 Other long term (current) drug therapy; Z91.040 Latex allergy status; Z87.891 Personal history of nicotine dependence
CPT/HCPCS: 36415; 71045; 80048; 80053; 80299; 80307; 80320; 80329; 81003; 84443; 85025; 87426; 99285; G0378; G0480

== ENCOUNTER 2021-07-05 13:15 | Inpatient (IN) | payer MEDICARE, OTHER ==
[~2021-07-05] VITALS: Ht 149.9 cm; Wt 45.2 kg
[2021-08-01 07:45] VITALS: BP 133/77
== END 2021-08-01 13:29 | disposition home or self-care (01) | DRG 57 ==
LOC: 3E 13:15 → UNDOADMIN 13:15 → 3E 17:46
PROVIDERS: ADMIT Psychiatry & Neurology Psychosomatic Medicine; ATTEND Psychiatry & Neurology Psychosomatic Medicine
DX: G30.9 Alzheimer's disease, unspecified (principal); F02.81 Dementia in other diseases classified elsewhere, unspecified severity, with behavioral disturbance; F23 Brief psychotic disorder; R45.851 Suicidal ideations; F31.60 Bipolar disorder, current episode mixed, unspecified; I10 Essential (primary) hypertension; Z85.3 Personal history of malignant neoplasm of breast; E03.9 Hypothyroidism, unspecified; C50.919 Malignant neoplasm of unspecified site of unspecified female breast; E11.9 Type 2 diabetes mellitus without complications; E78.5 Hyperlipidemia, unspecified; H40.9 Unspecified glaucoma; K21.9 Gastro-esophageal reflux disease without esophagitis; G89.29 Other chronic pain; Z66 Do not resuscitate; Z79.811 Long term (current) use of aromatase inhibitors; Z79.899 Other long term (current) drug therapy; Z87.891 Personal history of nicotine dependence; F41.9 Anxiety disorder, unspecified; Z82.49 Family history of ischemic heart disease and other diseases of the circulatory system; Z88.2 Allergy status to sulfonamides; Z88.8 Allergy status to other drugs, medicaments and biological substances; Z88.1 Allergy status to other antibiotic agents; Z91.040 Latex allergy status